=== PATIENT | male | born 1960 | race Caucasian/White ===

== ENCOUNTER → 2020-01-26 | Outpatient (CLI) | payer OTHER, BC | LOC: M RAD 09:33 | PROVIDERS: ATTEND Orthopaedic Surgery Sports Medicine | DX: M25.412 Effusion, left shoulder (principal); M19.012 Primary osteoarthritis, left shoulder; M19.011 Primary osteoarthritis, right shoulder; M75.91 Shoulder lesion, unspecified, right shoulder; M75.92 Shoulder lesion, unspecified, left shoulder; S43.431A Superior glenoid labrum lesion of right shoulder, initial encounter; X58.XXXA Exposure to other specified factors, initial encounter; Y92.9 Unspecified place or not applicable ==

== ENCOUNTER → 2021-05-23 | Outpatient (CLI) | payer OTHER ==
--- NOTE | 2021-05-23 16:18 | REP ---
INDICATION: IMPINGEMENT SYNDROME TIANA SHOULDER. COMPARISON: 01/26/2020 TECHNIQUE: Coronal oblique T1 and fat suppressed T2. Sagittal oblique fat suppressed T2. Axial [id number] and T2 FLASH. FINDINGS: There is hypertrophic degenerative change seen involving the acromioclavicular joint which is moderate status quo. The acromion process is type 3. There is advanced patchy and linear T2 hyper signal seen throughout the supraspinatus tendon some of which appears full-thickness. There is a small amount of fluid superficial to the supraspinatus tendon. The sub bursal surface of the supraspinatus tendon is irregular. There is coracohumeral and coracoacromial ligamentous thickening. Mild patchy T2 hyper signal is seen in the infraspinatus tendon. The teres minor and subscapularis tendons are within normal limits. There is no glenohumeral joint effusion. The biceps tendon resides within the bicipital groove. There is no abnormal fluid in the subcoracoid recess. IMPRESSION: 1. Note is again made of supraspinatus tendinitis/tendinosis. A partial full-thickness tear cannot be ruled out. 2. 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 3. There is evidence of mild infraspinatus tendinitis/tendinosis. 4. Other findings as described above. If labral pathology is of clinical concern consider follow-up with shoulder MRI arthrography. <Electronically signed by Billy Lopez > 05/23/21 [id number]
--- NOTE | 2021-05-23 16:24 | REP ---
INDICATION: IMPINGEMENT SYNDROME TIANA SHOULDER. COMPARISON: 01/26/2020 TECHNIQUE: Coronal oblique T1 and fat suppressed T2. Sagittal oblique fat suppressed T2. Axial [id number] and T2 FLASH. FINDINGS: There is moderate to severe hypertrophic degenerative change seen involving the acromioclavicular joint. The acromion process is type 3. There is patchy and linear T2 hyper signal seen throughout the supraspinatus tendon some of which appears full-thickness. There is no musculotendinous retraction. There is irregularity of the sub per so surface of the supraspinatus tendon. There is coracohumeral and coracoacromial ligamentous thickening. Patchy T2 hyper signal is seen in the biceps labral complex. There is mild T2 hyper signal seen in the subscapularis and infraspinatus tendons. The biceps tendon resides within the bicipital groove. There is no glenohumeral joint effusion. There is fluid in the subcoracoid recess. IMPRESSION: 1. 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 2. There are signal changes in the biceps labral complex suspicious for a tear. Better evaluation of the labrum and biceps labral complex can be obtained with shoulder MRI arthrography if clinically relevant. 3. There is advanced supraspinatus tendinitis/tendinosis with irregularity of the sub bursal surface. 4. There is subscapularis and infraspinatus tendinitis/tendinosis. 5. Other findings as described above. <Electronically signed by Billy Lopez > 05/23/21 [id number]
== END ==
LOC: M PLAIMG 14:26
PROVIDERS: ATTEND Orthopaedic Surgery Sports Medicine
DX: M75.41 Impingement syndrome of right shoulder (principal); M75.42 Impingement syndrome of left shoulder